=== PATIENT | female | born 1975 | race Hispanic/Latino ===

== ENCOUNTER → 2025-06-04 | Outpatient (CLI) | payer BC ==
[~2025-06-04] MED LIST: GADOTERATE MEGLUMINE 5 MMOL/10 ML VIAL IV ONE
--- NOTE | 2025-06-05 09:05 | HMCIMG ---
EXAM: MR Abdomen with and without Intravenous Contrast CLINICAL HISTORY: Patient presents with abnormal findings on prior liver and biliary tract imaging. TECHNIQUE: Multisequence, multiplanar magnetic resonance images of the abdomen with and without intravenous contrast. CONTRAST: Intravenous contrast administered. COMPARISON: None provided. FINDINGS: LOWER THORAX: No pleural effusion. LIVER: Diffuse hepatic steatosis with rounded margins. A well-defined T2-weighted hyperintense lesion in segment V measuring 1.3 x 1.1 cm shows discontinuous peripheral nodular enhancement in the arterial phase with progressive centripetal fill-in on portal and delayed phases, suggestive of a hemangioma. GALLBLADDER AND BILE DUCTS: Gallbladder is surgically absent. No biliary ductal dilatation. PANCREAS: Unremarkable. SPLEEN: Unremarkable. ADRENALS: Unremarkable. KIDNEYS: Normal morphology without hydronephrosis or mass. STOMACH AND BOWEL: Limited evaluation demonstrates no acute process. Uncomplicated colonic diverticula. LYMPH NODES: No lymphadenopathy. VASCULATURE: No abdominal aortic aneurysm. IMPRESSION: Diffuse hepatic steatosis with rounded margins; liver parenchymal disease to be ruled out. Hepatic hemangioma in segment V measuring 1.3 x 1.1 cm. Status post-cholecystectomy. Uncomplicated colonic diverticulosis. /Isaac
== END | disposition home or self-care (01) ==
LOC: RAH 08:12
PROVIDERS: ATTEND Internal Medicine Gastroenterology
DX: D18.03 Hemangioma of intra-abdominal structures (principal); K57.30 Diverticulosis of large intestine without perforation or abscess without bleeding; K76.0 Fatty (change of) liver, not elsewhere classified; R93.2 Abnormal findings on diagnostic imaging of liver and biliary tract; Z90.49 Acquired absence of other specified parts of digestive tract
CPT/HCPCS: 74183; A9575

== ENCOUNTER → 2025-08-11 | Outpatient (CLI) | payer BC ==
--- NOTE | 2025-08-13 11:31 | HMCIMG ---
PROCEDURE: Esophagram. TECHNIQUE: Oral ingestion of barium and effervescent crystals was performed and multiple fluoroscopic images were obtained to evaluate the esophagus. FLUOROSCOPY TIME: 2 minutes pulsed fluoroscopy. FINDINGS: The esophagus demonstrates normal motility. The mucosa is normal without evidence of mass, ulceration, or stricture. There was grade 2 gastroesophageal reflux witnessed during this examination. There is no hiatal hernia. A barium tablet easily passed through the esophagus into the stomach without hold up. Real-time visualization of swallowing were performed and demonstrated normal swallowing mechanism, normal contour, and normal mucosa. The stomach is normal size shape and configuration the rugal fold appears to be normal the duodenal bulb and duodenal sweep and upper jejunum appears to be normal. There are surgical clips in the right upper quadrant from prior cholecystectomy. IMPRESSION: Grade 2 esophageal reflux otherwise a normal esophagram.
== END | disposition home or self-care (01) ==
LOC: RAH 08:07
PROVIDERS: ATTEND Surgery
DX: K21.9 Gastro-esophageal reflux disease without esophagitis (principal); K44.9 Diaphragmatic hernia without obstruction or gangrene; R14.0 Abdominal distension (gaseous)
CPT/HCPCS: 74220